=== PATIENT | female | born 1940 | race Asian ===

== ENCOUNTER 2022-11-29 14:44 | Outpatient (CLI) | payer MEDICARE, BC | END 2022-11-29 14:45 | disposition home or self-care (01) | LOC: CSHMAMMO 14:44 | PROVIDERS: ATTEND Internal Medicine | DX: Z13.820 Encounter for screening for osteoporosis (principal) | CPT/HCPCS: 77080 ==

== ENCOUNTER 2022-12-27 10:04 | Outpatient (CLI) | payer MEDICARE, BC | END 2022-12-27 10:05 | disposition home or self-care (01) | LOC: CSHRAD 10:04 | PROVIDERS: ATTEND Internal Medicine | DX: M53.3 Sacrococcygeal disorders, not elsewhere classified (principal); M47.816 Spondylosis without myelopathy or radiculopathy, lumbar region | CPT/HCPCS: 72110; 72220 ==

== ENCOUNTER 2023-07-07 11:54 | Outpatient (CLI) | payer MEDICARE | END 2023-07-07 11:55 | disposition home or self-care (01) | LOC: CSHMAMMO 11:54 | PROVIDERS: ATTEND Internal Medicine | DX: Z12.31 Encounter for screening mammogram for malignant neoplasm of breast (principal); Z80.3 Family history of malignant neoplasm of breast; Z91.89 Other specified personal risk factors, not elsewhere classified | CPT/HCPCS: 77063; 77067 ==

== ENCOUNTER 2025-01-15 10:41 | Outpatient (CLI) | payer MEDICARE | END 2025-01-15 10:42 | disposition home or self-care (01) | LOC: CSHMAMMO 10:41 | PROVIDERS: ATTEND Internal Medicine | DX: Z78.0 Asymptomatic menopausal state (principal); M85.851 Other specified disorders of bone density and structure, right thigh | CPT/HCPCS: 77080 ==